=== PATIENT | female | born 1980 | race Caucasian/White ===

== ENCOUNTER 2021-10-04 20:03 | Emergency (ER) | payer MEDICAID, OTHER ==
[~2021-10-04] VITALS: Ht 160 cm; Wt 128.4 kg
[~2021-10-04 20:03] MED LIST: [UNRECOGNIZED DRUG - CODE] IU
[2021-10-04 20:23] VITALS: BP 122/70
--- NOTE | 2021-10-04 21:29 | NUR ---
Dr. Carranza examining patient.
--- NOTE | 2021-10-04 21:36 | NUR ---
PT AMBULATED TO BED #8
[2021-10-04] MEDS ORDERED: KETOROLAC 30 MG/ML VIAL IVP ONE (21:40)
[2021-10-04] MEDS ORDERED: NACL 0.9% 1,000 ML IV ONE (21:40)
[2021-10-04] MEDS ORDERED: MORPHINE SULFATE 4 MG/ML SYR IVP ONE (21:40)
[2021-10-04 21:54] LABS: BASOPHILS # (AUTO) 0.1 K/uL (0.00-0.22); BASOPHILS % (AUTO) 0.5 % (0.0-2.0); EOSINOPHILS % (AUTO) 0.1 % (0.0-4.0); HEMATOCRIT 45.2 % (36-48); HEMOGLOBIN 14.8 g/dL (12.0-16.0); LYMPHOCYTES # (AUTO) 0.9 K/uL (2.5-16.5); LYMPHOCYTES % (AUTO) 7.3 % (20.5-51.1); MEAN CORPUSCULAR HEMOGLOBIN 29 pg (27-31); MEAN CORPUSCULAR HGB CONC 33 g/dL (33-37); MEAN CORPUSCULAR VOLUME 87.9 fL (80-94); MONOCYTES # (AUTO) 0.4 K/uL (0.8-1.0); MONOCYTES % (AUTO) 3.1 % (1.7-9.3); NEUTROPHILS # (AUTO) 11.5 K/uL (1.8-7.7); PLATELET COUNT (AUTO) 430 K/uL (140-450); RED BLOOD CELL COUNT(AUTO) 5.15 MIL/uL (4.20-5.40); RED CELL DISTRIBUTION WIDTH 14.2 % (11.6-13.7); WHITE BLOOD COUNT (AUTO) 12.9 K/uL (4.8-10.8)
--- NOTE | 2021-10-04 21:57 | NUR ---
PATIENT UNABLE TO URINATE AT THIS TIME
--- NOTE | 2021-10-04 22:03 | NUR ---
41/F BIB SELF C/C SHARP UPPER ABD PAIN 12/24 X1 DAY. PATIENT REPORTS HAVING N/V/D X 1DAY. PATIETN REPORTS FEELING LIKE THIS WHEN SHE HAD "GALLBLADDER ISSUES". PATIENT IS DISTRESS HOLDING ABD STATING "IT HURTS SO BAD". PATIENT RR APPEAR TO BE EVEN AND UNLABORED. PLACED IN BED AND GOWN. BED LOW AND LOCKED. ALL NEEDS MET PMHX GALLBLADDER, THYROID NKA
--- NOTE | 2021-10-04 22:07 | NUR ---
US AT BEDSIDE
[2021-10-04 22:08] LABS: ALBUMIN 4.1 g/dL (3.4-5.0); ANION GAP 16.6 (8-16); CARBON DIOXIDE 26.9 mmol/L (21-32); CREATININE 0.8 mg/dL (0.6-1.3); POTASSIUM 3.5 mmol/L (3.5-5.1); TOTAL BILIRUBIN 0.4 mg/dL (0.0-1.0)
--- NOTE | 2021-10-04 23:09 | NUR ---
Patient being evaluated by physician at bedside.
--- NOTE | 2021-10-04 23:12 | NUR ---
MD SAMPSON WITH D/C PATIENT WITHOUT URINE.
[2021-10-04] MEDS ORDERED: IBUP-2218 PO (23:31)
[2021-10-04 23:57] VITALS: BP 127/65
--- NOTE | 2021-10-04 23:57 | NUR ---
Patient discharged with v/s stable. Written and verbal after care instructions given ABD/GALLBLADDER EATING PLAN and explained. Patient alert, oriented and verbalized understanding of instructions. Ambulatory with steady gait. All questions addressed prior to discharge. ID band removed. Patient advised to follow up with PMD. Rx of IBUPROFEN given.
--- NOTE | 2021-10-05 00:56 | NUR ---
The patient's care was reviewed and supervised by Alejandra Mayer RN.
== END 2021-10-04 23:57 | disposition home or self-care (01) ==
LOC: MED 20:03
DX: K80.20 Calculus of gallbladder without cholecystitis without obstruction (principal); R11.2 Nausea with vomiting, unspecified
CPT/HCPCS: 36415; 76705; 80053; 83690; 84702; 85025; 96361; 96374; 96375; 99284; J1885; J2270; J7030; Q0092

== ENCOUNTER 2023-05-26 01:45 | Emergency (ER) | payer OTHER ==
[~2023-05-26 01:45] MED LIST changes: +IBUP-2218 PO
== END 2023-05-26 02:08 | disposition left against medical advice (07) ==
LOC: MED 01:45
DX: J02.9 Acute pharyngitis, unspecified (principal); Z53.21 Procedure and treatment not carried out due to patient leaving prior to being seen by health care provider